=== PATIENT | male | born 1945 | race Caucasian/White ===

== ENCOUNTER 2017-03-02 15:40 | Observation (INO) | payer OTHER, MEDICAID ==
[2017-03-02 15:47] VITALS: BMI 31.5
--- NOTE | 2017-03-02 16:27 | DR.GENAD ---
HPI - PCP Primary Care Physician: DR. SILVA - Complaint/Symptoms Chief Complaint Doctors Comments: Patient has been followed by his primary care physician in [place] who ordered CT of abdomen and ultrasound of abdomen but results have not been available. He had acomplaint of nose bleed (endoscopy done) negative results. He continues to have abdominal pain and vomits periodically. He had a duplex hepatic venous flow LM 11/08/16-report attached. Chief Complaint:: PATIENT HAS NOT BEEN SLEEPING AND HIS ABD. IS HURTING AND HE SAYS IT IS HOT TO TOUCH FOR ALMOST A YEAR BUT WORSE THE LAST 3 MONTHS - Source History Provided: Patient - Mode of Arrival Mode of Arrival: Ambulatory - Timing Onset of Chief Complaint: 12/18/16 PMH - PMH Past Medical History: Yes Past Medical History: GERD, Hypertension Past Medical History Comment: BACK PAIN Past Surgical History: Yes Surgical History: Cholecystectomy - Family History History of Family Medical Conditions: Yes Family Medical History: Cancer, MA, Hypertension - Social History Does patient currently use any type of tobacco product: No Have you used tobacco products in the last 12 months: No Type of Tobacco Use: None Does any household member use tobacco: No Alcohol Use: Occasionally Do you use any recreational Drugs:: No Lives With: Family Lives Where: Home - infectious screening In the last 2 months have you had wt loss of >10#?: NO Have you had fever, night sweats or hemotysis?: No Have you traveled outside the country in the last 6 months?: No Isolation: Standard ROS - Review of Systems Eyes: No Symptoms Reported ENTM: No Symptoms Reported Respiratoy: No Symptoms Reported Cardiovascular: No Symptoms Reported Gastrointestinal/Abdominal: Abdominal Pain, Nausea Genitourinary: No Symptoms Reported Neurological: Tremors Musculoskeletal: No Symptoms Reported Integumentary: No Symptoms Reported Hematologic/Lymphatic: No Symptoms Reported Endocrine: No Symptoms Reported Psychiatric: No Symptoms Reported All Other Systems: Reviewed and Negative PE - Vital Signs Vitals: Pulse Rate 77 Respiratory Rate 20 Blood Pressure 142/65 O2 Sat by Pulse Oximetry 97 - General Limitations: negative: Language Barrier General Appearance: Alert, In No Apparent Distress - Head Head Exam: Normal Inspection, Atraumatic - Eyes Eye exam: Normal Appearance, PERRL, EOMI - ENT ENT Exam: Normal Exam, Normal Oropharynx, Mucous Membranes Moist TM/Canal Exam: Bilateral Normal Nose Exam: Normal Nose Exam. negative: Nasal Deviation, Septal Hematoma, Laceration, Abrasion Mouth Exam: Normal Inspection Throat Exam: Normal Inspection - Neck Neck Exam: Normal Inspection - Chest Chest Inspection: Normal Inspection - Respiratory Respiratory Exam: Normal Lung Sounds Bilat Respiratory Exam: Bilateral Clear to Auscultation - Cardiovascular Cardiovascular Exam: Regular Rate - Abdominal Exam Abdominal Exam: Normal Inspection, Distention Abdominal Tenderness: Mild - Extremities Extremities Exam: Normal Inspection - Back Back Exam: Normal Inspection - Neurologic Neurological Exam: Alert, Oriented X3, CN II-XII Intact - Psychiatric Psychiatric Exam: Normal Affect - Skin Skin Exam: Warm, Dry, Intact Course - Reevaluation 1st: Unchanged - Consultation Called: 19:15 (Dr Goncalves authorized admission for further evaluation) ROR - Labs Reviewed Laboratory Results Reviewed?: Yes (low sod,low BUN) Result Diagrams: 03/02/17 16:38 03/02/17 16:38 Laboratory: WBC 4.3 X10^3/uL (3.6-10.0) 03/02/17 16:38 RBC 3.62 X10^6/uL (4.7-6.0) L 03/02/17 16:38 Hgb 12.3 g/dL (13.5-18.0) L 03/02/17 16:38 Hct 34.9 % (42.0-54.0) L 03/02/17 16:38 MCV 96.4 fL (80.0-100.0) 03/02/17 16:38 MCH 34.0 pg (27.0-34.0) 03/02/17 16:38 MCHC 35.3 g/dL (33.0-35.0) H 03/02/17 16:38 RDW 12.6 % (11.6-16.5) 03/02/17 16:38 Plt Count 132 X10^3/uL (150.0-450.0) L 03/02/17 16:38 MPV 8.3 fL (7.4-11.0) 03/02/17 16:38 Neut % 60.1 % (42.0-75.0) 03/02/17 16:38 Lymph % 22.3 % (21.0-51.0) 03/02/17 16:38 [place] % 12.6 % (0.0-13.0) 03/02/17 16:38 Eos % 4.3 % (0.9-2.9) H 03/02/17 16:38 Baso % 0.7 % (0.2-1.0) 03/02/17 16:38 Neut # 2.6 x10^3/uL (2.2-4.8) 03/02/17 16:38 Lymph # 1.0 X10^3/uL (1.3-2.9) L 03/02/17 16:38 [place] # 0.5 x10^3/uL (0.3-0.8) 03/02/17 16:38 Eos # 0.2 x10^3/uL (0.0-0.2) 03/02/17 16:38 Baso # 0.0 X10^3/uL (0.0-0.1) 03/02/17 16:38 Absolute Nucleated RBC 0.1 /100WBC 03/02/17 16:38 Sodium 132 mmol/L (136-145) L 03/02/17 16:38 Corrected Sodium 132 mmol/L (136-145) L 03/02/17 16:38 Potassium 4.4 mmol/L (3.5-5.1) 03/02/17 16:38 Chloride 99 mmol/L (98-107) 03/02/17 16:38 Carbon Dioxide 26.7 mmol/L (21-32) 03/02/17 16:38 BUN 4 mg/dL (7-18) L 03/02/17 16:38 Creatinine 0.81 mg/dL (0.70-1.30) 03/02/17 16:38 Est GFR (MDRD) Af Amer > 60 (>60) 03/02/17 16:38 Est GFR (MDRD) Non-Af > 60 (>60) 03/02/17 16:38 Glucose 111 mg/dL (65-99) H 03/02/17 16:38 Calcium 8.7 mg/dL (8.5-10.1) 03/02/17 16:38 Corrected Calcium 9.3 mg/dL (8.5-10.1) 03/02/17 16:38 Total Bilirubin 2.60 mg/dL (0.2-1.0) H 03/02/17 16:38 AST 64 Units/L (15-37) H 03/02/17 16:38 ALT 35 Units/L (12-78) 03/02/17 16:38 Alkaline Phosphatase 72 Units/L (46-116) 03/02/17 16:38 C-Reactive Protein 1.40 mg/L (0-3.0) 03/02/17 16:38 Total Protein 8.6 g/dL (6.4-8.2) H 03/02/17 16:38 Albumin 3.3 g/dL (3.4-5.0) L 03/02/17 16:38 Globulin 5.3 g/dL (2.5-4.5) H 03/02/17 16:38 Albumin/Globulin Ratio 0.6 Ratio (1.1-2.1) L 03/02/17 16:38 Specimen Type Clean catch urine 03/02/17 16:50 Urine Color Pale yellow (YELLOW) 03/02/17 16:50 Urine Appearance Clear (CLEAR) 03/02/17 16:50 Urine pH 6.0 (5.0 - 8.0) 03/02/17 16:50 Ur Specific [place] 1.010 (1.000-1.030) 03/02/17 16:50 Urine Protein Negative (NEGATIVE) 03/02/17 16:50 Urine Glucose (UA) Negative (NEGATIVE) 03/02/17 16:50 Urine Ketones Negative (NEGATIVE) 03/02/17 16:50 Urine Occult Blood Negative (NEGATIVE) 03/02/17 16:50 Urine Nitrite Negative (NEGATIVE) 03/02/17 16:50 Urine Bilirubin Negative (NEGATIVE) 03/02/17 16:50 Urine Urobilinogen Normal (NORMAL) 03/02/17 16:50 Ur Leukocyte Esterase Negative (NEGATIVE) 03/02/17 16:50 Urine RBC 0-1 /HPF (NEGATIVE) 03/02/17 16:50 Urine WBC None seen /HPF (NEGATIVE) 03/02/17 16:50 Ur Squamous Epith Cells Rare /HPF (NEGATIVE) 03/02/17 16:50 Amorphous Sediment Trace /HPF (NEGATIVE) 03/02/17 16:50 Urine Bacteria Negative /HPF (NEGATIVE) 03/02/17 16:50 Ur Culture Indicated? No/not indicated 03/02/17 16:50 - XRAY XRAY Interpreted by: Radiologist (The visualized portions of the lung bases are unremarkable. The spleen is mildly enlarged measuring over 13 cm sagital length. The liver and pancreas and kidneys and adrenal glands are unremarkable. The gallbladder is surgically absent. There is no significant biliary dilatation. No significant mesenteric lymphadenopathy or stranding can be observed. No free fluid or free air is seen within the abdomen. There is a small umbilical hernia containing a loop of small bowel. There is mild distension of the loop of small bowel going into the hernia and small caliber of the loop coming out of the hernia. No bowel wall thickening or bowel dilatation is present. There is moderate sigmoid diverticulosis without inflammatory changes. The prostate is enlarged measuring 5.4 cm. The bony structures are golssly intact. Impression: Minimally obstructing small umbilical hernia containing a loop of small bowel, prostate enlargement, mild splenomegaly.) - Diagnosis Discharge Problem: Umbilical hernia w.loop of sm.bowel, Prostatic enlargement, Hyponatremia - Discharge Plan Condition: Stable - Follow ups/Referrals Follow ups/Referrals: CONCHITA SILVA [Primary Care Provider] - 3 days - Instructions
[2017-03-02 16:51] LABS: BASOPHILS % (AUTO) 0.7 % (0.2-1.0); EOSINOPHILS # (AUTO) 0.2 x10^3/uL (0.0-0.2); EOSINOPHILS % (AUTO) 4.3 % (0.9-2.9); HEMATOCRIT 34.9 % (42.0-54.0); HEMOGLOBIN 12.3 g/dL (13.5-18.0); LYMPHOCYTES % (AUTO) 22.3 % (21.0-51.0); MEAN CORPUSCULAR HGB CONC 35.3 g/dL (33.0-35.0); MEAN CORPUSCULAR VOLUME 96.4 fL (80.0-100.0); MEAN PLATELET VOLUME 8.3 fL (7.4-11.0); MONOCYTES # (AUTO) 0.5 x10^3/uL (0.3-0.8); MONOCYTES % (AUTO) 12.6 % (0.0-13.0); NEUTROPHILS # (AUTO) 2.6 x10^3/uL (2.2-4.8); NEUTROPHILS % (AUTO) 60.1 % (42.0-75.0); PLATELET COUNT 132 X10^3/uL (150.0-450.0); RED BLOOD COUNT 3.62 X10^6/uL (4.7-6.0); RED CELL DISTRIBUTION WIDTH 12.6 % (11.6-16.5); WHITE BLOOD COUNT 4.3 X10^3/uL (3.6-10.0)
[2017-03-02 16:59] LABS: ALANINE AMINOTRANSFERASE 35 Units/L (12-78); ALBUMIN 3.3 g/dL (3.4-5.0); ALKALINE PHOSPHATASE 72 Units/L (46-116); ASPARTATE AMINO TRANSFERASE 64 Units/L (15-37); BLOOD UREA NITROGEN 4 mg/dL (7-18); CALCIUM 8.7 mg/dL (8.5-10.1); CARBON DIOXIDE 26.7 mmol/L (21-32); CHLORIDE 99 mmol/L (98-107); COR CA(FOR HYPOALB) 9.3 mg/dL (8.5-10.1); COR NA(FOR HYPERGLY) 132 mmol/L (136-145); CREATININE 0.81 mg/dL (0.70-1.30); GLUCOSE 111 mg/dL (65-99); SODIUM 132 mmol/L (136-145); TOTAL PROTEIN 8.6 g/dL (6.4-8.2); eGFR BLACK RACES > 60 (>60); eGFR NON BLACK RACES > 60 (>60)
[2017-03-02 17:04] LABS: BILIRUBIN,URINE NEGATIVE (NEGATIVE); BLOOD/HEMOGLOBIN,URINE NEGATIVE (NEGATIVE); GLUCOSE, URINE NEGATIVE (NEGATIVE); KETONES,URINE NEGATIVE (NEGATIVE); LEUKOCYTE ESTERASE ,URINE NEGATIVE (NEGATIVE); NITRITES,URINE NEGATIVE (NEGATIVE); PROTEIN,URINE NEGATIVE (NEGATIVE); UROBILINOGEN,URINE NORMAL (NORMAL)
[2017-03-02 17:13] LABS: AMORPHOUS SEDIMENT,UR TRACE /HPF (NEGATIVE); APPEARANCE,URINE CLEAR (CLEAR); BACTERIA,URINE NEGATIVE /HPF (NEGATIVE); COLOR,URINE PALE YELLOW (YELLOW); RBC,URINE 0-1 /HPF (NEGATIVE); SQUAMOUS EPITHELIAL CELL,UR RARE /HPF (NEGATIVE)
[2017-03-02] MEDS ORDERED: MORPHINE SULFATE INJ 4 MG IVP ONE (18:09)
[2017-03-02] MEDS ORDERED: ZOFRAN INJ 4 MG VIAL IVP ONE (18:09)
[2017-03-02] MEDS ORDERED: ZOFRAN INJ 4 MG VIAL ONE (18:10)
[2017-03-02] MEDS ORDERED: MORPHINE SULFATE INJ 4 MG ONE (18:10)
[2017-03-02] MEDS ORDERED: NS 100 ML IV 100 ML IV ONE (18:15)
--- NOTE | 2017-03-02 18:42 | CT ---
HISTORY: Abdominal pain and swelling Study: CT abdomen and pelvis with IV contrast Comparison: None Technique: Multiple axial images of the abdomen and pelvis were obtained from the lung bases to the pubic symph ysis with the administration of IV contrast. Sagittal and coronal reformations were provided. Findings: The visualized portions of the lung bases are unremarkable. The spleen is mildly enlarged measuring over 13 centimeters sagittal length. The liver and pancreas and kidneys and adrenal glands are unre markable.. The gallbladder is surgically absent. There is no significant biliary dilatation.. No si gnificant mesenteric lymphadenopathy or stranding can be observed. No free fluid or free air is see n within the abdomen. There is a small umbilical hernia containing a loop of small bowel. There is mild distension of the loop of small bowel going into the hernia and small caliber of the loop comin g out of the hernia. No bowel wall thickening or bowel dilatation is present. There is moderate sig moid diverticulosis without inflammatory changes.. The prostate is enlarged measuring 5.4 centimeter s diameter The bony structures are grossly intact. IMPRESSION: 1. Minimally obstructing small umbilical hernia containing a loop of small bowel 2. Prostatic enlargement 3. Mild splenomegaly Reported By:
[2017-03-02] MEDS ORDERED: MORPHINE SULFATE INJ 4 MG IVP PRN (19:45)
[2017-03-02] MEDS ORDERED: NS + KCL 20 MEQ/L 1,000 ML IV ONE (20:15)
[2017-03-02] MEDS: NS 1000 ML 1,000 ML with POTASSIUM CHLORIDE INJ 20 MEQ VIAL 20 MEQ IV SCH ×2 (20:20)
[2017-03-03] MEDS: ZOFRAN INJ 4 MG VIAL IVP PRN ×2 (01:20→08:59)
[2017-03-03] MEDS ORDERED: NS + KCL 20 MEQ/L 1,000 ML IV ONE (03:15)
[2017-03-03] MEDS: NS 1000 ML 1,000 ML with POTASSIUM CHLORIDE INJ 20 MEQ VIAL 20 MEQ IV SCH ×2 (03:39)
[2017-03-03 06:19] LABS: BASOPHILS % (AUTO) 0.4 % (0.2-1.0); EOSINOPHILS # (AUTO) 0.2 x10^3/uL (0.0-0.2); EOSINOPHILS % (AUTO) 5.9 % (0.9-2.9); HEMATOCRIT 30.9 % (42.0-54.0); HEMOGLOBIN 10.9 g/dL (13.5-18.0); LYMPHOCYTES # (AUTO) 0.7 X10^3/uL (1.3-2.9); MEAN CORPUSCULAR HEMOGLOBIN 34.3 pg (27.0-34.0); MEAN CORPUSCULAR HGB CONC 35.4 g/dL (33.0-35.0); MEAN CORPUSCULAR VOLUME 97.1 fL (80.0-100.0); MEAN PLATELET VOLUME 8.8 fL (7.4-11.0); MONOCYTES # (AUTO) 0.5 x10^3/uL (0.3-0.8); MONOCYTES % (AUTO) 15.3 % (0.0-13.0); NEUTROPHILS % (AUTO) 58.4 % (42.0-75.0); PLATELET COUNT 104 X10^3/uL (150.0-450.0); RED BLOOD COUNT 3.19 X10^6/uL (4.7-6.0); RED CELL DISTRIBUTION WIDTH 12.7 % (11.6-16.5); WHITE BLOOD COUNT 3.5 X10^3/uL (3.6-10.0)
[2017-03-03 06:31] LABS: ALANINE AMINOTRANSFERASE 28 Units/L (12-78); ALBUMIN 2.8 g/dL (3.4-5.0); ALKALINE PHOSPHATASE 59 Units/L (46-116); ASPARTATE AMINO TRANSFERASE 49 Units/L (15-37); BLOOD UREA NITROGEN 6 mg/dL (7-18); CALCIUM 8.2 mg/dL (8.5-10.1); CARBON DIOXIDE 26.6 mmol/L (21-32); CHLORIDE 101 mmol/L (98-107); COR CA(FOR HYPOALB) 9.2 mg/dL (8.5-10.1); COR NA(FOR HYPERGLY) 137 mmol/L (136-145); CREATININE 0.76 mg/dL (0.70-1.30); GLUCOSE 133 mg/dL (65-99); SODIUM 136 mmol/L (136-145); TOTAL PROTEIN 7.1 g/dL (6.4-8.2); eGFR BLACK RACES > 60 (>60); eGFR NON BLACK RACES > 60 (>60)
--- NOTE | 2017-03-03 07:28 | CT ---
HISTORY: Follow up umbilical hernia Study: CT abdomen pelvis without contrast Comparison: March 02, 2017 Technique: Axial non contrast images with coronal and sagittal reformats. Dose reduction procedures were use with MA/kv adjusted for body size. Findings: The lung bases are clear. The heart is enlarged. The liver, spleen, adrenal glands, and pancreas are within normal limits to the limitations of an unenhanced examination. The patient is status post ch olecystectomy. The kidneys are unobstructed and without stones. No ureteral calculi are identified. No enlarged intraperitoneal or retroperitoneal lymphadenopathy is identified. There are no findings suggestive of diverticulitis or colitis. Once again noted is a small midline periumbilical ventral h ernia containing a loop of small bowel. There is constriction of the lumen of the exiting small nusrat l loop however the previously noted minimal dilatation of the small bowel appears to have resolved. There are no findings to suggest strangulation. However, the small size of the hernia and the constr iction of the lumen of the exiting loop suggests possible incarceration. Recurrence of the mild smal l bowel obstruction could occur. Examination of the pelvis demonstrated no evidence for pelvic tio s, pelvic fluid, or pelvic lymphadenopathy. No lytic or blastic skeletal lesions are identified. IMPRESSION: Midline periumbilical ventral hernia containing a loop of small bowel which demonstrates some lumina l constriction and a configuration suggestive of incarceration without findings of strangulation. No definite small bowel obstruction is present at this time, however com recurrence could occur. Reported By:
[2017-03-03] MEDS ORDERED: ZESTRIL TAB 20 MG ONE (08:36)
[2017-03-03] MEDS ORDERED: ZESTRIL TAB 20 MG PO SCH (09:00)
[2017-03-03] MEDS ORDERED: LASIX IVP SCH (09:00)
[2017-03-03] MEDS ORDERED: PROTONIX INJ 40 MG VIAL IVP SCH (09:00)
[2017-03-03] MEDS ORDERED: NS + KCL 20 MEQ/L 1,000 ML IV SCH (12:00)
[2017-03-03 13:12] VITALS: BP 180/74
== END 2017-03-03 13:00 | disposition left against medical advice (07) ==
LOC: ER 15:54 → MED/SURG 19:40
PROVIDERS: ADMIT Internal Medicine; ATTEND Internal Medicine
DX: K42.0 Umbilical hernia with obstruction, without gangrene (principal); R10.84 Generalized abdominal pain; K57.30 Diverticulosis of large intestine without perforation or abscess without bleeding; R16.1 Splenomegaly, not elsewhere classified; R94.5 Abnormal results of liver function studies; K21.9 Gastro-esophageal reflux disease without esophagitis; I10 Essential (primary) hypertension; N40.0 Benign prostatic hyperplasia without lower urinary tract symptoms; E87.1 Hypo-osmolality and hyponatremia; D64.89 Other specified anemias
CPT/HCPCS: 36415; 74176; 74177; 80053; 81001; 85025; 86140; 94760; 96365; 96374; 96375; 99284; A4222; C9113; G0378; J1940; J2270; J2405; J3480